=== PATIENT | male | born 1950 | race Hispanic/Latino ===

== ENCOUNTER 2018-09-27 13:50 | Emergency (ER) | payer OTHER | END 2018-09-27 14:42 | disposition home or self-care (01) | LOC: EDH 13:50 | DX: K12.0 Recurrent oral aphthae (principal); E11.9 Type 2 diabetes mellitus without complications; E78.5 Hyperlipidemia, unspecified; Z87.891 Personal history of nicotine dependence | CPT/HCPCS: 99281 ==